=== PATIENT | male | born 1990 | race Caucasian/White ===

== ENCOUNTER 2018-03-27 17:12 | Emergency (ER) | payer MEDICAID, OTHER ==
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
[2018-03-27 17:36] VITALS: BP 96/45
== END 2018-03-27 17:50 ==
LOC: EDUNIT#
DX: R45.1 Restlessness and agitation (principal); F20.9 Schizophrenia, unspecified; F17.200 Nicotine dependence, unspecified, uncomplicated

== ENCOUNTER 2018-12-09 18:15 | Emergency (ER) | payer MEDICAID, OTHER ==
--- NOTE | 2018-12-09 18:19 | EDPHY ---
H & P Time Seen by Provider: 12/09/18 18:16 - Medical/Surgical History Hx Asthma: No Hx Chronic Respiratory Disease: No Hx Diabetes: No Hx Cardiac Disease: No Hx Renal Disease: No Hx Cirrhosis: No Hx Alcoholism: No Hx HIV/AIDS: No Hx Splenectomy or Spleen Trauma: No Other PMH: seizure disorder. bipolar, schizophrenic - Social History Smoking Status: Never smoked Constitutional: Initial Vital Signs Temperature (C) 37.1 C 12/09/18 18:21 Heart Rate 99 12/09/18 18:21 Respiratory Rate 16 12/09/18 18:21 Blood Pressure 109/73 12/09/18 18:21 O2 Sat (%) 93 12/09/18 18:21 O2 Delivery Mode Room Air Allergies/Adverse Reactions: penicillin G Allergy (Unverified 03/27/18 17:17) Home Medications: Medication Instructions Recorded Seroquel 03/27/18 Medical Decision Making ED Course/Re-evaluation: CHIEF COMPLAINT: Med clear HISTORY OF PRESENT ILLNESS: The patient is a 28 y/o male arriving via EMS with [employer] for medical clearance. Per EMS the patient was acting like he was having excited delirium. Due to this behavior EMS gave the patient 5mg IM Versed. The patient is now somnolent with a spit devine on. REVIEW OF SYSTEMS: Unable to obtain secondary to patient's altered mental status. PHYSICAL EXAM: HR, BP, O2 Sat, RR. Temp noted General Appearance: Spit devine on. lert, well hydrated, appropriate, and non- toxic appearing. Head: Abrasion to forehead. Eyes: Pupils equal, round, reactive to light and accommodation, EOMI, no trauma , no injection. Ears: Clear bilaterally, no perforation, normal landmarks Nose: Atraumatic, no rhinorrhea, clear. Throat: There is no erythema or exudates, no lesions, normal tonsils, mucus membranes moist. Neck: Supple, 2+ carotid upstroke, nontender, no lymphadenopathy. Respiratory: No retractions, no distress, no wheezes, and no accessory muscle use. Lungs are clear to auscultation bilaterally. Cardiovascular: Regular rate and rhythm, no murmurs, rubs, or gallops. Bilateral carotid, radial, dorsalis pedis, and posterior tibial pulses intact. Good capillary refill all extremities. Gastrointestinal: Abdomen is soft, nontender, non-distended, no masses, no rebound, no guarding, no peritoneal signs. Musculoskeletal: Normal active ROM of all extremities, atraumatic. Neurological: Somnolent. The patient has normal DTRs and non-focal cranial nerves, motor, sensory, and cerebellar exam. Skin: No rashes, good turgor, no nodules on palpation. Past medical history: Unknown Past surgical history: Unknown Family history: Unknown Social history: Single, lives in [place], not employed DIAGNOSTICS/PROCEDURES/CRITICAL CARE TIME: Not indicated. DIFFERENTIAL DIAGNOSIS: The differential diagnosis for the patient's altered mental status included but was not limited to hypoglycemia, infectious process, electrolyte abnormality, head injury, neurologic process, anemia, cardiac process, and intoxicants. MEDICAL DECISION MAKING: The patient is a 28 y/o male arriving via EMS with [place] [employer] for medical clearance. He is currently somnolent after EMS administered 5mg IM Versed as the patient was agitated and appeared to be in excited delirium. Patient has a spit devine on, is handcuffed, and has a spit devine on. We will wait for him to wake up after the Versed before he can be cleared for half-way. 2005: Patient is still somnolent and not able to ambulate. We will continue to observe him. 2144: Patient is awake and able to ambulate. He will be discharged with [place] [employer]. Return precautions; patient and police are comfortable with this plan. Departure - Departure Disposition: Law Enforcement/Court/[facility] Clinical Impression: Medical clearance for incarceration, Abrasion Condition: Good Instructions: Abrasion (ED) Additional Instructions: Follow-up with your primary doctor within 72 hours. Return to the Emergency Department for fever, chest pain, shortness of breath, increasing pain or other worsening of condition. Referrals: [facility],. [Clinic] - As per Instructions Report Scribed for: Jacobo Montilla Report Scribed by: Marsha Garcia Date of Report: 12/09/18 Time of Report: 18:16
[2018-12-09] MEDS ORDERED: AMMONIA AROMATIC 1 EACH AMP IH ONE (20:03)
[2018-12-09 21:52] VITALS: BP 118/69
== END 2018-12-09 21:52 ==
LOC: EDUNIT# → EDBD
DX: F30.10 Manic episode without psychotic symptoms, unspecified (principal); G40.909 Epilepsy, unspecified, not intractable, without status epilepticus